=== PATIENT | female | born 1990 ===

== ENCOUNTER 2017-10-21 04:18 | Emergency (ER) | payer OTHER ==
[2017-10-21 04:35] VITALS: BP 108/78; PULSE 66; RESP 18; TEMP 98.6; O2SAT 100
--- NOTE | 2017-10-21 05:09 | ED PDOC ---
HPI: Headache Time Seen by Provider: 10/21/17 04:20 Chief Complaint (Nursing): Headache Chief Complaint (Provider): Headache History Per: Patient History/Exam Limitations: no limitations Onset/Duration Of Symptoms: Days (x6) Current Symptoms Are (Timing): Still Present Quality: Other (Numbness) Preceeding Symptoms: None Additional Complaint(s): 27 year old female presents to ED with complaints of persistent headache x6 days and has a history of migraines. Patient notes that this headache is not like previous migraines, as she feels her head is numb. Notes that ibuprofen has provided no relief. (-) fever, vomiting, or light/noise sensitivity. Notes headache is worse on the right aspect of her head in comparison to the left. PCP: Dr. Day Past Medical History Reviewed: Historical Data, Nursing Documentation, Vital Signs Vital Signs: Last Vital Signs Temp 98.6 F 10/21/17 04:30 Pulse 66 10/21/17 04:30 Resp 18 10/21/17 04:30 BP 108/78 10/21/17 04:30 Pulse Ox 100 10/21/17 04:30 - Medical History PMH: Migraine Denies: Chronic Kidney Disease - Surgical History Surgical History: No Surg Hx - Family History Family History: States: No Known Family Hx - Social History Current smoker - smoking cessation education provided: No Alcohol: Occasional - Allergies Allergies/Adverse Reactions: Allergies Allergy/AdvReac Type Severity Reaction Status Date / Time No Known Allergies Allergy Verified 10/21/17 04:35 Review of Systems ROS Statement: Except As Marked, All Systems Reviewed And Found Negative Constitutional: Negative for: Fever Eyes: Negative for: Other ((-) photophobia) Gastrointestinal: Negative for: Vomiting Neurological: Positive for: Numbness (Numbness to head), Headache Physical Exam - Reviewed Nursing Documentation Reviewed: Yes Vital Signs Reviewed: Yes - Physical Exam Appears: Positive for: Non-toxic, No Acute Distress Head Exam: Positive for: ATRAUMATIC, NORMAL INSPECTION, NORMOCEPHALIC Skin: Positive for: Normal Color, Warm, Dry Eye Exam: Positive for: Normal appearance, EOMI, PERRL ENT: Positive for: Normal ENT Inspection Cardiovascular/Chest: Positive for: Regular Rate, Rhythm. Negative for: Murmur Respiratory: Positive for: Normal Breath Sounds. Negative for: Respiratory Distress Gastrointestinal/Abdominal: Positive for: Soft. Negative for: Tenderness Back: Positive for: Normal Inspection Extremity: Positive for: Normal ROM. Negative for: Deformity Neurologic/Psych: Positive for: Alert, Oriented. Negative for: Motor/Sensory Deficits - Laboratory Results Result Diagrams: 10/21/17 05:32 10/21/17 05:32 - ECG O2 Sat by Pulse Oximetry: 100 (RA) Pulse Ox Interpretation: Normal Medical Decision Making Medical Decision Makin Initial impression: migraine headache Initial plan: * Labs * NS IV * Reglan 10mg IVP * Re-eval 0655 Upon re-evaluation, patient feels better and is stable for discharge home. Dx: migraine Scribe Attestation: Documented by Samanta Izquierdo acting as a scribe for Cris Waldrop MD. Scribe Attestation: All medical record entries made by the Scribe were at my direction and personally dictated by me. I have reviewed the chart and agree that the record accurately reflects my personal performance of the history, physical exam, medical decision making, and the department course for this patient. I have also personally directed, reviewed, and agree with the discharge instructions and disposition. Disposition - Clinical Impression Clinical Impression: Migraine - Patient ED Disposition Is Patient to be Admitted: No Counseled Patient/Family Regarding: Studies Performed, Diagnosis, Need For Followup - Disposition Referrals: [facility] [Outside] Shawn Day MD [Primary Care Provider] - Candido Guevara MD [Medical Doctor] - Disposition: Routine/Home Disposition Time: 06:00 Condition: IMPROVED Additional Instructions: follow up with your neurologist in 1-2 days take motrin as needed return to the ED with any worsening or concerning symptoms Instructions: Migraine Headache (ED) Forms: [facility] (Maltese)
[2017-10-21] MEDS: Sodium Chloride 0.9% 1,000 ML IV STA (05:44)
[2017-10-21 05:45] LABS: BASO # 0.1 K/uL (0.0-0.2); BASO % 0.7 % (0.0-2.0); EOS # 0.2 K/uL (0.0-0.7); EOS % 2.5 % (0.0-4.0); LYMPH # 2.6 K/uL (1.0-4.3); LYMPH % 34.3 % (20.0-40.0); MEAN CELL VOLUME 92.8 fl (81.0-99.0); MEAN CORPUSCULAR HEMOGLOBIN 30.5 pg (27.0-31.0); MEAN CORPUSCULAR HGB CONC 32.9 g/dL (33.0-37.0); MEAN PLATELET VOLUME 7.2 fl (7.2-11.7); MONO # 0.5 K/uL (0.0-0.8); MONO % 7.1 % (0.0-10.0); NEUT # 4.2 K/uL (1.8-7.0); NEUT % 55.4 % (50.0-75.0); NRBC % 0.1 % (0.0-0.0); RBC 3.93 Mil/uL (3.80-5.20); RED CELL DISTRIBUTION WIDTH 13.8 % (11.5-14.5); WHITE BLOOD COUNT 7.5 K/uL (4.8-10.8)
[2017-10-21 05:52] LABS: ALBUMIN 3.9 g/dL (3.5-5.0)
[2017-10-21 06:02] LABS: ALT/SGPT 30 U/L (9-52); AST/SGOT 23 U/L (14-36); BLOOD UREA NITROGEN 9 mg/dl (7-17); CALCIUM 9.1 mg/dL (8.4-10.2); GFR AFRICAN-AMERICAN > 60; GFR NON-AFRICAN AMERICAN > 60
[2017-10-21 06:03] LABS: ALB/GLOB RATIO 1.3 (1.0-2.1)
== END 2017-10-21 07:15 | disposition home or self-care (01) ==
LOC: H.ER 04:18
DX: G43.909 Migraine, unspecified, not intractable, without status migrainosus (principal); R20.2 Paresthesia of skin
CPT/HCPCS: 80053; 81025; 85025; 96361; 96374; 96375; 99284; J1885; J2765; J7040